=== PATIENT | male | born 1975 | race Caucasian/White ===

== ENCOUNTER 2016-11-02 13:14 | Emergency (ER) | payer OTHER ==
[~2016-11-02] VITALS: Ht 177.8 cm; Wt 60.0 kg
[~2016-11-02 13:14] MED LIST: CIPR500T4 PO; Z.0.NO CURRENT MEDS
[2016-11-02 13:16] VITALS: BP 137/80; PULSE 88; RESP 20; TEMP 98.5; O2SAT 98
--- NOTE | 2016-11-02 13:35 | PD ---
Physical Exam Date Seen by Provider: November 02, 2016 Time Seen by Provider: 13:32 Narrative 40 YOWM C/O ABD PAIN WITH N/V/F/C WITH WORSENING IN THE RLQ. PAIN 12/31. VSS wating for bed asignment Data Data Last Documented VS Vital Signs Date Time Temp Pulse Resp B/P Pulse Ox O2 Delivery O2 Flow Rate FiO2 11/02/16 13:16 98.5 88 20 137/80 98 Room Air [facility] Medical Record Reviewed: No Supervised Visit with ERIC: Yusuf Campbell November 02, 2016 13:35
[2016-11-02 14:09] VITALS: BP 143/77; PULSE 72; RESP 16; O2SAT 98
[2016-11-02] MEDS ORDERED: SODIUM CHLOR 0.9% 1000 ML INJ 1,000 ML IV SCH (14:49)
[2016-11-02] MEDS ORDERED: SODIUM CHLORIDE 0.9% FLUSH 10 ML FLUSH IV FLUSH PRN (15:00)
[2016-11-02] MEDS ORDERED: ONDANSETRON HCL 4 MG/2 ML VIAL IVP ONE (15:00)
[2016-11-02] MEDS ORDERED: KETOROLAC TROMETHAMINE 30 MG/ML (IVP) VIAL IVP ONE (15:00)
[2016-11-02 15:23] LABS: AUTOMATED NEUTROPHIL # 12.4 TH/MM3 (1.8-7.7); BASOPHIL % 0.3 % (0.0-2.0); EOSINOPHIL % 0.2 % (0.0-4.0); HEMATOCRIT 47.7 % (39.0-51.0); HEMO FLAGS DIFF FINAL; LYMPH % 13.5 % (9.0-44.0); LYMPHOCYTE # 2.1 TH/MM3 (1.0-4.8); MEAN CELL VOLUME 89.4 FL (80.0-100.0); MEAN CORPUSCULAR HEMOGLOBIN 30.3 PG (27.0-34.0); MEAN CORPUSCULAR HGB CONC 33.8 % (32.0-36.0); MONO % 5.5 % (0.0-8.0); NEUT % 80.5 % (16.0-70.0); PLATELET COUNT 260 TH/MM3 (150-450); RED BLOOD COUNT 5.34 MIL/MM3 (4.50-5.90); RED CELL DISTRIBUTION WIDTH 13.4 % (11.6-17.2); WHITE BLOOD COUNT 15.4 TH/MM3 (4.0-11.0)
[2016-11-02 15:43] LABS: BLOOD, URINE SMALL (NEG); COMMENT (UR) CULT NOT INDICATED; CULTURE IF INDICATED CULT NOT INDICATED; GLUCOSE,URINE NEG (NEG); KETONE, URINE 40 mg/dL (NEG); MUCUS URINE FEW /lpf (OCC); NITRITE,URINE NEG (NEG); URINE COLOR YELLOW (YELLW/STRAW)
[2016-11-02 15:49] LABS: ALT (GPT) 14 U/L (12-78); ANION GAP 9 MEQ/L (5-15); AST (GOT) 14 U/L (15-37); BICARBONATE 28.5 MEQ/L (21.0-32.0); BLOOD UREA NITROGEN 13 MG/DL (7-18); CHLORIDE 102 MEQ/L (98-107); GLOMERULAR FILTRATION RATE 101 ML/MIN (>89); SODIUM (NA) 139 MEQ/L (136-145)
[2016-11-02 15:51] LABS: ALKALINE PHOSPHATASE 83 U/L (45-117); TOTAL BILIRUBIN ADULT 0.6 MG/DL (0.2-1.0)
[2016-11-02] MEDS ORDERED: DIATRIZOATE MEGLUM/DIATRIZOATE SOD 9 ML CUP ONE (15:52)
[2016-11-02] MEDS ORDERED: SODIUM CHLOR 0.9% 1000 ML INJ 1,000 ML IV ONE (16:15)
--- NOTE | 2016-11-02 17:27 | PD ---
HPI Chief Complaint: Abdominal Pain Time Seen by Provider: 14:30 Travel History International Travel<30 days: No Contact w/Intl Traveler<30days: No Traveled to known affect area: No History of Present Illness HPI 40-year-old male came to the emergency room with history of right lower quadrant abdominal pain since yesterday. He has been nauseous and vomited couple times. He seemed very uncomfortable. His mom who is here claims to be a doctor and was really concerned about appendicitis. Vital signs are otherwise stable. [facility] Past Medical History Narrative Medical List of his past medical, social, surgical and family history was reviewed from the nursing note. Social History Alcohol Use: No Tobacco Use: Yes (1/2PPD) Substance Use: No Allergies-Medications (Allergen,Severity, Reaction): Coded Allergies: No Known Allergies (Unverified , 10/27/12) Comments No known drug allergies. Reported Meds & Prescriptions Reported Meds & Active Scripts Active Flagyl (Metronidazole) 500 Mg Tab 500 Mg PO TID 7 Days Ciprofloxacin (Ciprofloxacin HCl) 750 Mg Tab 750 Mg PO BID 7 Days Zofran Odt (Ondansetron Odt) 8 Mg Tab 8 Mg SL Q8H PRN Cipro (Ciprofloxacin HCl) 500 Mg Tab 500 Mg PO BID 5 Days Reported No Current Meds (Miscellaneous Medication) Misc Narrative Medication List of his home medications reviewed from the nursing note. Review of Systems Except as stated in HPI: all other systems reviewed are Neg Physical Exam Narrative GENERAL: Awake, alert, anxious, moderate distress SKIN: Focused skin assessment warm/dry. HEAD: Atraumatic. Normocephalic. EYES: Pupils equal and round. No scleral icterus. No injection or drainage. ENT: No nasal bleeding or discharge. Mucous membranes pink and moist. NECK: Trachea midline. No JVD. CARDIOVASCULAR: Regular rate and rhythm. No murmur appreciated. RESPIRATORY: No accessory muscle use. Clear to auscultation. Breath sounds equal bilaterally. GASTROINTESTINAL: Abdomen soft, right lower quadrant pain, guarding and rebound , nondistended. Hepatic and splenic margins not palpable. MUSCULOSKELETAL: No obvious deformities. No clubbing. No cyanosis. No edema. NEUROLOGICAL: Awake and alert. No obvious cranial nerve deficits. Motor grossly within normal limits. Normal speech. PSYCHIATRIC: Appropriate mood and affect; insight and judgment normal. Data Data Last Documented VS Vital Signs Date Time Temp Pulse Resp B/P Pulse Ox O2 Delivery O2 Flow Rate FiO2 11/02/16 14:09 72 16 143/77 98 Room Air 11/02/16 13:16 98.5 Orders Complete Blood Count With Diff (11/02/16 14:49) Comprehensive Metabolic Panel (11/02/16 14:49) Lipase (11/02/16 14:49) Urinalysis - C+S If Indicated (11/02/16 14:49) Ct Abd/Pel W Iv Contrast(Rout) (11/02/16 14:49) Iv Access Insert/Monitor (11/02/16 14:49) Ecg Monitoring (11/02/16 14:49) Oximetry (11/02/16 14:49) Ondansetron Inj (Zofran Inj) (11/02/16 15:00) Sodium Chlor 0.9% 1000 Ml Inj (Ns 1000 M (11/02/16 14:49) Sodium Chloride 0.9% Flush (Ns Flush) (11/02/16 15:00) Ketorolac Inj (Toradol Inj) (11/02/16 15:00) Oral Contrast - Adult (11/02/16 15:02) Diatrizoate Liq ( Gastroview Liq) (11/02/16 15:52) Sodium Chlor 0.9% 1000 Ml Inj (Ns 1000 M (11/02/16 16:15) Iohexol 350 Inj (Omnipaque 350 Inj) (11/02/16 17:28) Labs Laboratory Tests Test 11/02/16 15:05 White Blood Count 15.4 TH/MM3 Red Blood Count 5.34 MIL/MM3 Hemoglobin 16.1 GM/DL Hematocrit 47.7 % Mean Corpuscular Volume 89.4 FL Mean Corpuscular Hemoglobin 30.3 PG Mean Corpuscular Hemoglobin 33.8 % Concent Red Cell Distribution Width 13.4 % Platelet Count 260 TH/MM3 Mean Platelet Volume 9.7 FL Neutrophils (%) (Auto) 80.5 % Lymphocytes (%) (Auto) 13.5 % Monocytes (%) (Auto) 5.5 % Eosinophils (%) (Auto) 0.2 % Basophils (%) (Auto) 0.3 % Neutrophils # (Auto) 12.4 TH/MM3 Lymphocytes # (Auto) 2.1 TH/MM3 Monocytes # (Auto) 0.8 TH/MM3 Eosinophils # (Auto) 0.0 TH/MM3 Basophils # (Auto) 0.0 TH/MM3 CBC Comment DIFF FINAL Differential Comment Urine Color YELLOW Urine Turbidity HAZY Urine pH 5.0 Urine Specific [place] 1.024 Urine Protein TRACE mg/dL Urine Glucose (UA) NEG mg/dL Urine Ketones 40 mg/dL Urine Occult Blood SMALL Urine Nitrite NEG Urine Bilirubin NEG Urine Urobilinogen LESS THAN 2.0 MG/DL Urine Leukocyte Esterase NEG Urine RBC LESS THAN 1 /hpf Urine WBC 1 /hpf Urine Mucus FEW /lpf Microscopic Urinalysis Comment CULT NOT INDICATED Sodium Level 139 MEQ/L Potassium Level 4.0 MEQ/L Chloride Level 102 MEQ/L Carbon Dioxide Level 28.5 MEQ/L Anion Gap 9 MEQ/L Blood Urea Nitrogen 13 MG/DL Creatinine 0.84 MG/DL Estimat Glomerular Filtration 101 ML/MIN Rate Random Glucose 78 MG/DL Calcium Level 9.4 MG/DL Total Bilirubin 0.6 MG/DL Aspartate Amino Transf 14 U/L (AST/SGOT) Alanine Aminotransferase 14 U/L (ALT/SGPT) Alkaline Phosphatase 83 U/L Total Protein 7.6 GM/DL Albumin 4.0 GM/DL Lipase 69 U/L [facility] Medical Decision Making Medical Screen Exam Complete: Yes Emergency Medical Condition: Yes Medical Record Reviewed: Yes Differential Diagnosis Acute appendicitis, acute diverticulitis, abdominal pain NOS Narrative Course 5:27 PM blood test results of back and there are significant leukocytosis. Awaiting for the CAT scan to be done and resulted. Medicated for pain and IV fluid given. 7 PM Case was signed over to the oncoming ER physician. Procedures EKG Prior to Arrival: No Scripts Metronidazole (Flagyl)500 Mg [id number] Mg PO TID 7 Days Ref 0 Prov:Claribel Wilson MD 11/02/16 Ciprofloxacin 750 Mg [id number] Mg PO BID 7 Days Ref 0 Prov:Claribel Wilson MD 11/02/16 Ondansetron Odt (Zofran Odt)8 Mg Tab8 Mg SL Q8H PRN (NAUSEA OR VOMITING) #10 TAB Ref 0 Prov:Claribel Wilson MD 11/02/16 Rylee Mohamud MD November 02, 2016 17:27
[2016-11-02] MEDS ORDERED: IOHEXOL 350 MG/ML 10 ML VIAL (for RAD DIAG) IV ONE (17:28)
--- NOTE | 2016-11-02 17:37 | PD ---
Data Data Last Documented VS Vital Signs Date Time Temp Pulse Resp B/P Pulse Ox O2 Delivery O2 Flow Rate FiO2 11/02/16 14:09 72 16 143/77 98 Room Air 11/02/16 13:16 98.5 Orders Complete Blood Count With Diff (11/02/16 14:49) Comprehensive Metabolic Panel (11/02/16 14:49) Lipase (11/02/16 14:49) Urinalysis - C+S If Indicated (11/02/16 14:49) Ct Abd/Pel W Iv Contrast(Rout) (11/02/16 14:49) Iv Access Insert/Monitor (11/02/16 14:49) Ecg Monitoring (11/02/16 14:49) Oximetry (11/02/16 14:49) Ondansetron Inj (Zofran Inj) (11/02/16 15:00) Sodium Chlor 0.9% 1000 Ml Inj (Ns 1000 M (11/02/16 14:49) Sodium Chloride 0.9% Flush (Ns Flush) (11/02/16 15:00) Ketorolac Inj (Toradol Inj) (11/02/16 15:00) Oral Contrast - Adult (11/02/16 15:02) Diatrizoate Liq ( Gastroview Liq) (11/02/16 15:52) Sodium Chlor 0.9% 1000 Ml Inj (Ns 1000 M (11/02/16 16:15) Iohexol 350 Inj (Omnipaque 350 Inj) (11/02/16 17:28) Labs Laboratory Tests Test 11/02/16 15:05 White Blood Count 15.4 TH/MM3 Red Blood Count 5.34 MIL/MM3 Hemoglobin 16.1 GM/DL Hematocrit 47.7 % Mean Corpuscular Volume 89.4 FL Mean Corpuscular Hemoglobin 30.3 PG Mean Corpuscular Hemoglobin 33.8 % Concent Red Cell Distribution Width 13.4 % Platelet Count 260 TH/MM3 Mean Platelet Volume 9.7 FL Neutrophils (%) (Auto) 80.5 % Lymphocytes (%) (Auto) 13.5 % Monocytes (%) (Auto) 5.5 % Eosinophils (%) (Auto) 0.2 % Basophils (%) (Auto) 0.3 % Neutrophils # (Auto) 12.4 TH/MM3 Lymphocytes # (Auto) 2.1 TH/MM3 Monocytes # (Auto) 0.8 TH/MM3 Eosinophils # (Auto) 0.0 TH/MM3 Basophils # (Auto) 0.0 TH/MM3 CBC Comment DIFF FINAL Differential Comment Urine Color YELLOW Urine Turbidity HAZY Urine pH 5.0 Urine Specific [place] 1.024 Urine Protein TRACE mg/dL Urine Glucose (UA) NEG mg/dL Urine Ketones 40 mg/dL Urine Occult Blood SMALL Urine Nitrite NEG Urine Bilirubin NEG Urine Urobilinogen LESS THAN 2.0 MG/DL Urine Leukocyte Esterase NEG Urine RBC LESS THAN 1 /hpf Urine WBC 1 /hpf Urine Mucus FEW /lpf Microscopic Urinalysis Comment CULT NOT INDICATED Sodium Level 139 MEQ/L Potassium Level 4.0 MEQ/L Chloride Level 102 MEQ/L Carbon Dioxide Level 28.5 MEQ/L Anion Gap 9 MEQ/L Blood Urea Nitrogen 13 MG/DL Creatinine 0.84 MG/DL Estimat Glomerular Filtration 101 ML/MIN Rate Random Glucose 78 MG/DL Calcium Level 9.4 MG/DL Total Bilirubin 0.6 MG/DL Aspartate Amino Transf 14 U/L (AST/SGOT) Alanine Aminotransferase 14 U/L (ALT/SGPT) Alkaline Phosphatase 83 U/L Total Protein 7.6 GM/DL Albumin 4.0 GM/DL Lipase 69 U/L [facility] Supervised Visit with ERIC: No Narrative Course 40-year-old male here with complaint of right lower quadrant abdominal pain since yesterday with nausea, emesis. Right lower quadrant tenderness palpation on exam but overall benign. Afebrile, not tachycardic. White blood cell count elevated at 16. Patient signed out to me pending CT scan. CT abdomen and pelvis showed small bowel wall thickening consistent with enteritis. Patient's abdominal examination remains benign on my evaluation. His pain is improved. We'll discharge to home with Mary Kay Trinh for possible bacterial source enteritis. He has not had any bloody stools. Zofran as needed for nausea, vomiting. Patient given warning signs to return to the ER. Diagnosis Primary Impression: Enteritis Referrals: Primary Care Physician as needed Additional Instruction: Nausea medications as needed. Antibiotics as prescribed. Return to the emergency department for the warning signs discussed. Med/Other Pt SpecificInfo: Prescription(s) given Scripts Metronidazole (Flagyl)500 Mg [id number] Mg PO TID 7 Days Ref 0 Prov:Claribel Wilson MD 11/02/16 Ciprofloxacin 750 Mg [id number] Mg PO BID 7 Days Ref 0 Prov:Claribel Wilson MD 11/02/16 Ondansetron Odt (Zofran Odt)8 Mg Tab8 Mg SL Q8H PRN (NAUSEA OR VOMITING) #10 TAB Ref 0 Prov:Claribel Wilson MD 11/02/16 Disposition: 01 DISCHARGE HOME Condition: Stable Claribel Wilson MD November 02, 2016 17:37
--- NOTE | 2016-11-02 17:37 | RADRPT ---
EXAM DATE/TIME: 11/02/2016 17:15 [place] COMPARISON: No previous studies available for comparison. INDICATIONS : Epigastric pain with vomiting. IV CONTRAST: 78 cc Omnipaque 350 (iohexol) IV ORAL CONTRAST: Prescribed oral contrast ingested. RADIATION DOSE: 6.64 CTDIvol (mGy) MEDICAL HISTORY : None SURGICAL HISTORY : None. ENCOUNTER: Initial ACUITY: 1 day PAIN SCALE: 7/10 LOCATION: epigastric TECHNIQUE: Volumetric scanning of the abdomen and pelvis was performed. Using automated exposure control and ad justment of the mA and/or kV according to patient size, radiation dose was kept as low as reasonably achievable to obtain optimal diagnostic quality images. FINDINGS: LOWER LUNGS: The visualized lower lungs are clear. LIVER: Homogeneous density without lesion. There is no dilation of the biliary tree. No calcified gallston es. SPLEEN: Normal size without lesion. PANCREAS: Within normal limits. KIDNEYS: Normal in size and shape. There is no mass, stone or hydronephrosis. ADRENAL GLANDS: Within normal limits. VASCULAR: There is no aortic aneurysm. BOWEL/MESENTERY: Segmental wall thickening is identified in the proximal jejunum. The mid to distal small bowel is unr emarkable. Colon is unremarkable without evidence of active inflammatory disease. There is no evidenc e of peritonsillar inflammation or abnormal fluid collections. ABDOMINAL WALL: Within normal limits. RETROPERITONEUM: There is no lymphadenopathy. BLADDER: No wall thickening or mass. REPRODUCTIVE: Within normal limits. INGUINAL: There is no lymphadenopathy or hernia. MUSCULOSKELETAL: Within normal limits for patient age. CONCLUSION: Segmental wall thickening in the proximal small bowel which may represent enteritis. No other significant abnormalities noted. Jesus Roberts MD on November 02, 2016 at 17:28 Board Certified Radiologist. This report was verified electronically.
[2016-11-02] MEDS ORDERED: METR-1 PO (17:43)
[2016-11-02] MEDS ORDERED: ZOFR8TAB4 SL (17:43)
[2016-11-02] MEDS ORDERED: CIPR750T2 PO (17:43)
== END 2016-11-02 18:13 | disposition home or self-care (01) ==
LOC: NEPD 13:14
DX: F17.210 Nicotine dependence, cigarettes, uncomplicated (principal); K52.9 Noninfective gastroenteritis and colitis, unspecified
CPT/HCPCS: 74177; 80053; 81001; 83690; 85025; 96374; 96375; 99284; J1885; J2405; J7030; Q9963; Q9967